=== PATIENT | male | born 1965 | race Caucasian/White ===

== ENCOUNTER 2017-09-11 06:51 | Day surgery (SDC) | payer OTHER ==
[2017-09-11] MEDS ORDERED: PROPOFOL 40 ML (09:29)
== END 2017-09-11 17:19 | disposition home or self-care (01) ==
LOC: GIL 06:51
DX: Z12.11 Encounter for screening for malignant neoplasm of colon (principal); D12.6 Benign neoplasm of colon, unspecified; K64.8 Other hemorrhoids; I10 Essential (primary) hypertension; E78.5 Hyperlipidemia, unspecified; E11.9 Type 2 diabetes mellitus without complications
CPT/HCPCS: 45380; 88305